=== PATIENT | male | born 1985 | race Hispanic/Latino ===

== ENCOUNTER 2017-12-12 14:44 | Outpatient (CLI) | payer OTHER ==
[2017-12-12 15:37] LABS: #Eosinphils 0.1 thou/uL (0.0-0.7); #Lymphocytes 1.7 thou/uL (1.20-3.40); #Monocytes 0.5 thou/uL (0.11-0.59); #Neutrophils 2.6 thou/uL (1.40-6.50); %Basophils 0.4 % (0.0-1.0); %Eosinophils 2.1 % (0.0-10.0); %Lymphocytes 34.8 % (21.0-51.0); %Monocytes 10.6 % (0.0-10.0); Mean Corpuscular HGB CONC 35.3 g/dL (32.0-36.0); Mean Corpuscular Hemoglobin 33.6 pg (27.0-31.0); Mean Corpuscular Volume 95.2 fl (80.0-94.0); Mean Platelet Volume 7.7 fL (7.4-10.4); Platelet Count 180 thou/uL (130-400); RBC Distribution Width 11.3 % (11.5-14.5); Red Blood Cell (RBC) Count 4.76 mill/uL (4.70-6.10); White Blood Cell (WBC) Count 4.9 thou/uL (4.8-10.8)
[2017-12-12 16:00] LABS: Anion Gap 12 mmol/L (10-20); BUN (Urea Nitrogen) 17 mg/dL (8.9-20.6); Calc. Creatinine Clearance 0 mL/min (70-130); Calcium 9.7 mg/dL (7.8-10.44); Carbon Dioxide 26 mmol/L (22-29); Chloride 105 mmol/L (98-107); Estimated GFR-MDRD 75; Glucose 74 mg/dL (70-105); Potassium 4.3 mmol/L (3.5-5.1); Sodium 139 mmol/L (136-145)
== END 2017-12-12 14:45 | disposition home or self-care (01) ==
LOC: LABBT 14:44
PROVIDERS: ATTEND Specialist
DX: Z01.812 Encounter for preprocedural laboratory examination (principal); K40.90 Unilateral inguinal hernia, without obstruction or gangrene, not specified as recurrent
CPT/HCPCS: 80048; 85025

== ENCOUNTER 2017-12-16 05:33 | Day surgery (SDC) | payer OTHER ==
[2017-12-12 15:02] VITALS: BMI 21.4
[2017-12-16] MEDS ORDERED: CEFAZOLIN/Water 2 GM/20 ML SYRINGE ONE (06:00)
[2017-12-16] MEDS ORDERED: Ketorolac Tromethamine 30 MG/ML VIAL ONE (06:00)
[2017-12-16] MEDS ORDERED: Midazolam HCl 2 mg/2 ml Vial ONE ×2 (06:42→07:04)
[2017-12-16] MEDS ORDERED: Fentanyl 250 MCG/5 ML VIAL ONE (06:42)
[2017-12-16] MEDS ORDERED: Bupivacaine/Epinephrine 0.25% 30 ML VIAL ONE (06:51)
[2017-12-16] MEDS ORDERED: Fentanyl 100 MCG/2 ML VIAL ONE (09:51)
[2017-12-16] MEDS ORDERED: HYDROcodone/Acetaminophen 5/325 mg Tablet ONE (11:35)
[2017-12-16] MEDS ORDERED: Dexamethasone 20 MG/5 ML VIAL ONE (16:03)
[2017-12-16] MEDS ORDERED: Ondansetron HCl/PF 4 MG/2 ML Vial ONE (16:03)
[2017-12-16] MEDS ORDERED: PROPOFOL 200 MG/20 ML VIAL ONE (16:03)
--- NOTE | 2017-12-17 15:22 | OP ---
DATE OF PROCEDURE: 12/16/2017 PREOPERATIVE DIAGNOSIS: Right inguinal hernia. POSTOPERATIVE DIAGNOSIS: Right inguinal hernia, indirect. OPERATION PERFORMED: Repair of indirect right inguinal hernia with mesh using the large PerFix mesh, patch and plug. SURGEON: Bhavesh Wolf M.D. ANESTHESIA: General endotracheal. INDICATIONS: The patient is a 32-year-old male. He presents with an enlarged and symptomat ic right inguinal hernia. He was taken to operating room at this time for repair. DESCRIPTION OF OPERATION: Informed consent was obtained and the patient was taken to the operating r oom where general anesthesia obtained with the patient in supine position. Right groin was prepped w ith ChloraPrep and draped in sterile fashion. Local anesthetic was infiltrated using 0.25% Marcaine with epinephrine. Oblique right inguinal incision was created. Dissection was carried through skin and subcutaneous tissue and carried down to the fascia, which was opened parallel to its fibers so as to open the external ring. Dissection was carried out to isolate the spermatic cord. There was no evidence of hernia in the direct space. Dissection within the cord revealed an obvious indirect chaitanya ia. This had a fairly thickened sac and significant surrounding inflammatory response. This was car efully dissected away from the remaining cord structures and dissected back to its opening at the int ernal ring. The hernia sac was ligated and the residual excised. Ligation was performed with 2-0 Vi cryl suture, which was then secured to the apex of the large mesh plug and the complex was inverted i n the preperitoneal space. The plug was secured to surrounding fascial structures with interrupted s utures of 2-0 Vicryl. The mesh patch was obtained, trimmed to appropriate size, placed in the floor of the inguinal canal and secured to surrounding structures using interrupted sutures of 2-0 Vicryl. The fascia was then closed with running suture of 3-0 Vicryl. Remainder of the wound was closed in layers with 3-0 and 4-0 Monocryl. Dermabond was placed externally. Additional local anesthetic was infiltrated into the wound as it was closed. There were no complications. The patient tolerated the procedure well. Blood loss was negligible, although there was oozing from the cord structures due t o the chronic and somewhat inflamed nature of the hernia sac. The patient tolerated the procedure we ll and was taken to recovery room in stable condition.
== END 2017-12-16 11:38 | disposition home or self-care (01) ==
LOC: SDC 05:33
PROVIDERS: ATTEND Specialist
PROC: 0YU50JZ Supplement Right Inguinal Region with Synthetic Substitute, Open Approach (ICD-10-PCS; principal; 2017-12-16)
DX: K40.90 Unilateral inguinal hernia, without obstruction or gangrene, not specified as recurrent (principal)
CPT/HCPCS: 96374; C1781; J0131; J1100; J1885; J2250; J2405; J2704; J3010